=== PATIENT | male | born 1990 | race African-American/Black ===

== ENCOUNTER 2020-06-18 14:30 | Emergency (ER) | payer MEDICARE, MEDICAID ==
[2020-06-18] MEDS ORDERED: Ibuprofen 200 MG TAB ONE (16:36)
== END 2020-06-18 16:40 | disposition home or self-care (01) ==
LOC: CSHERS 14:30
DX: M54.2 Cervicalgia (principal); G89.29 Other chronic pain; I10 Essential (primary) hypertension
CPT/HCPCS: 99281

== ENCOUNTER 2020-11-16 11:41 | Emergency (ER) | payer MEDICARE, MEDICAID ==
[2020-11-17 09:54] LABS: SARS-CoV-2 PCR by NAA Not Detected (NotDetected)
== END 2020-11-16 12:20 | disposition home or self-care (01) ==
LOC: CSHERS 11:41
DX: J06.9 Acute upper respiratory infection, unspecified (principal); Z20.822 Contact with and (suspected) exposure to COVID-19; I10 Essential (primary) hypertension
CPT/HCPCS: U0003; U0005; 99283

== ENCOUNTER 2021-05-22 18:07 | Emergency (ER) | payer MEDICARE, MEDICAID ==
[2021-05-22 19:09] LABS: #Basophils 0.1 10x3/uL (0.0-0.2); #Eosinphils 0.1 10x3/uL (0.0-0.5); #Monocytes 0.5 10x3/uL (0.0-1.1); #Neutrophils 3.2 10x3/uL (1.5-8.4); %Basophils 1.5 % (0.0-2.0); %Eosinophils 1.5 % (0.0-6.0); %Lymphocytes 35.8 % (18.0-47.0); %Monocytes 7.9 % (0.0-10.0); %Neutrophils 53.1 % (40.0-75.0); Hemoglobin 14.9 g/dL (13.5-17.5); Mean Corpuscular HGB CONC 34.1 g/dL (32.0-36.0); Mean Corpuscular Hemoglobin 29.3 pg (27.0-33.0); Mean Platelet Volume 10.9 fl (7.4-10.4); Platelet Count 259 10x3/uL (150-450); RBC Distribution Width 12.1 % (11.5-14.5); Red Blood Cell (RBC) Count 5.08 10x6/uL (4.32-5.72); White Blood Cell (WBC) Count 6.1 10x3/uL (3.5-10.5)
[2021-05-22 19:20] LABS: ALT (SGPT) 29 U/L (8-55); AST (SGOT) 32 U/L (5-34); Albumin 4.6 g/dL (3.5-5.0); Alkaline Phosphatase 80 U/L (40-110); Anion Gap 13 mmol/L (10-20); BUN (Urea Nitrogen) 12 mg/dL (8.9-20.6); Bilirubin, Total 1.9 mg/dL (0.2-1.2); Calc. Creatinine Clearance 0 mL/min (70-130); Calcium 9.8 mg/dL (7.8-10.44); Carbon Dioxide 26 mmol/L (22-29); Chloride 103 mmol/L (98-107); Globulin 3.3 g/dL (2.4-3.5); Glucose 79 mg/dL (70-105); Lipase 30 U/L (8-78); Potassium 3.5 mmol/L (3.5-5.1); Protein, Total 7.9 g/dL (6.0-8.3); Sodium 138 mmol/L (136-145)
[2021-05-22] MEDS ORDERED: Ketorolac Tromethamine 30 MG/ML VIAL ONE (19:44)
== END 2021-05-22 20:01 | disposition home or self-care (01) ==
LOC: CSHERS 18:07
DX: R07.9 Chest pain, unspecified (principal); I10 Essential (primary) hypertension
CPT/HCPCS: 71045; 80053; 83690; 84484; 85025; 93005; 94760; 96374; J1885

== ENCOUNTER 2021-08-05 20:00 | Emergency (ER) | payer MEDICARE, OTHER ==
[2021-08-05] MEDS ORDERED: predniSONE 20 MG TAB ONE (20:54)
== END 2021-08-05 21:00 | disposition home or self-care (01) ==
LOC: CSHERS 20:00
DX: M54.2 Cervicalgia (principal); I10 Essential (primary) hypertension
CPT/HCPCS: 99283; J7512

== ENCOUNTER 2021-08-28 07:36 | Emergency (ER) | payer MEDICARE, OTHER ==
[2021-08-28 09:00] LABS: Bilirubin Neg (Negative); Blood, Urine 250 (Negative); Clarity Cloudy (Clear); Glucose, Urine (Dipstick) Normal (Negative); Ketone, Urine Negative (Negative); Leukocyte 25 (Negative); Nitrite Negative (Negative); Protein, Urine (Dipstick) 500 mg/dl (Neg-Trace); pH, Urine 6.5 (5.0-9.0)
[2021-08-28 09:03] LABS: Bacteria/HPF None Seen HPF (None Seen); RBC/HPF Greater than 50 HPF (0-3); Squamous Epithelial None Seen HPF (0-3); WBC/HPF 0-3 HPF (0-3)
[2021-08-28] MEDS ORDERED: Azithromycin 250 MG TAB ONE (09:31)
[2021-08-28] MEDS ORDERED: cefTRIAXone\\ROCEPHIN 500 MG VIAL ONE (09:31)
[2021-08-28] MEDS ORDERED: Sterile Water 10 ML ONE (09:32)
[2021-08-29 12:36] LABS: Chlam.trachomatis by PCR,Urine Not Detected (NotDetected)
== END 2021-08-28 09:42 | disposition home or self-care (01) ==
LOC: CSHERS 07:36
DX: R31.9 Hematuria, unspecified (principal); Z20.2 Contact with and (suspected) exposure to infections with a predominantly sexual mode of transmission; I10 Essential (primary) hypertension
CPT/HCPCS: 81003; 81015; 87086; 87491; 87591; 96372; 99283; J0696

== ENCOUNTER 2021-09-09 17:28 | Emergency (ER) | payer MEDICARE, OTHER ==
[2021-09-09 19:00] LABS: #Basophils 0.1 10x3/uL (0.0-0.2); #Eosinphils 0.1 10x3/uL (0.0-0.5); #Monocytes 0.4 10x3/uL (0.0-1.1); %Basophils 2.5 % (0.0-2.0); %Eosinophils 2.1 % (0.0-6.0); %Lymphocytes 48.2 % (18.0-47.0); %Monocytes 8.4 % (0.0-10.0); %Neutrophils 38.6 % (40.0-75.0); Mean Corpuscular HGB CONC 34.3 g/dL (32.0-36.0); Mean Corpuscular Hemoglobin 29.9 pg (27.0-33.0); Mean Corpuscular Volume 87.2 fl (81.2-95.1); Mean Platelet Volume 10.4 fl (7.4-10.4); Platelet Count 267 10x3/uL (150-450); RBC Distribution Width 12.6 % (11.5-14.5); Red Blood Cell (RBC) Count 4.68 10x6/uL (4.32-5.72); White Blood Cell (WBC) Count 5.1 10x3/uL (3.5-10.5)
[2021-09-09 19:13] LABS: ALT (SGPT) 46 U/L (8-55); AST (SGOT) 29 U/L (5-34); Albumin 4.4 g/dL (3.5-5.0); Alkaline Phosphatase 69 U/L (40-110); Anion Gap 12 mmol/L (10-20); BUN (Urea Nitrogen) 6 mg/dL (8.9-20.6); Calc. Creatinine Clearance 0 mL/min (70-130); Calcium 9.6 mg/dL (7.8-10.44); Carbon Dioxide 26 mmol/L (22-29); Chloride 103 mmol/L (98-107); Estimated GFR 100; Globulin 2.9 g/dL (2.4-3.5); Glucose 84 mg/dL (70-105); Lipase 28 U/L (8-78); Potassium 4.3 mmol/L (3.5-5.1); Protein, Total 7.3 g/dL (6.0-8.3); Sodium 137 mmol/L (136-145)
[2021-09-09] MEDS ORDERED: Dicyclomine 20 MG/2 ML VIAL ONE (19:48)
== END 2021-09-09 19:56 | disposition home or self-care (01) ==
LOC: CSHERS 17:28
DX: R10.84 Generalized abdominal pain (principal); R19.7 Diarrhea, unspecified; I10 Essential (primary) hypertension
CPT/HCPCS: 36415; 80053; 83690; 85025; 96372; 99284; J0500

== ENCOUNTER 2021-10-07 08:34 | Emergency (ER) | payer MEDICARE, OTHER | END 2021-10-07 08:53 | disposition left against medical advice (07) | LOC: CSHERS 08:34 | DX: Z53.21 Procedure and treatment not carried out due to patient leaving prior to being seen by health care provider (principal) ==

== ENCOUNTER 2021-10-23 21:08 | Emergency (ER) | payer MEDICARE, OTHER ==
[2021-10-23] MEDS ORDERED: Mag-Al Plus 1200 MG/1200 MG/120 MG/30 ML UDCUP ONE (23:33)
[2021-10-23] MEDS ORDERED: Lidocaine Viscous Sol 2% 15 ml UD Cup ONE (23:33)
[2021-10-24 00:06] LABS: #Basophils 0.1 10x3/uL (0.0-0.2); #Eosinphils 0.2 10x3/uL (0.0-0.5); #Monocytes 0.5 10x3/uL (0.0-1.1); #Neutrophils 1.7 10x3/uL (1.5-8.4); %Eosinophils 3.7 % (0.0-6.0); %Lymphocytes 49.7 % (18.0-47.0); %Monocytes 9.3 % (0.0-10.0); %Neutrophils 35.1 % (40.0-75.0); Hemoglobin 14.6 g/dL (13.5-17.5); Mean Corpuscular HGB CONC 34.2 g/dL (32.0-36.0); Mean Corpuscular Hemoglobin 29.6 pg (27.0-33.0); Mean Corpuscular Volume 86.4 fl (81.2-95.1); Mean Platelet Volume 11.3 fl (7.4-10.4); Platelet Count 157 10x3/uL (150-450); RBC Distribution Width 12.4 % (11.5-14.5); Red Blood Cell (RBC) Count 4.94 10x6/uL (4.32-5.72); White Blood Cell (WBC) Count 4.9 10x3/uL (3.5-10.5)
[2021-10-24 00:11] LABS: ALT (SGPT) 26 U/L (8-55); AST (SGOT) 30 U/L (5-34); Albumin 4.4 g/dL (3.5-5.0); Alkaline Phosphatase 69 U/L (40-110); Anion Gap 13 mmol/L (10-20); BUN (Urea Nitrogen) 8 mg/dL (8.9-20.6); Bilirubin, Total 0.9 mg/dL (0.2-1.2); Calc. Creatinine Clearance 0 mL/min (70-130); Calcium 9.9 mg/dL (7.8-10.44); Carbon Dioxide 27 mmol/L (22-29); Chloride 105 mmol/L (98-107); Estimated GFR 98; Globulin 3.1 g/dL (2.4-3.5); Glucose 87 mg/dL (70-105); Lipase 29 U/L (8-78); Potassium 3.9 mmol/L (3.5-5.1); Protein, Total 7.5 g/dL (6.0-8.3); Sodium 141 mmol/L (136-145)
[2021-10-24 00:22] LABS: Bilirubin Neg (Negative); Blood, Urine 10 (Negative); Clarity Clear (Clear); Glucose, Urine (Dipstick) Normal (Negative); Ketone, Urine 5 mg/dL (Negative); Leukocyte Negative (Negative); Nitrite Negative (Negative); Protein, Urine (Dipstick) 15 mg/dl (Neg-Trace)
[2021-10-24 00:31] LABS: Bacteria/HPF None Seen HPF (None Seen); RBC/HPF 0-3 HPF (0-3); Squamous Epithelial None Seen HPF (0-3)
[2021-10-24] MEDS ORDERED: Ketorolac Tromethamine 30 MG/ML VIAL ONE (01:30)
== END 2021-10-24 01:36 | disposition home or self-care (01) ==
LOC: CSHERS 21:08
DX: R10.9 Unspecified abdominal pain (principal); I10 Essential (primary) hypertension
CPT/HCPCS: 80053; 81003; 81015; 83690; 85025; 96374; J1885

== ENCOUNTER 2021-11-09 20:32 | Emergency (ER) | payer MEDICARE, OTHER ==
[2021-11-10 16:38] LABS: Chlam.trachomatis by PCR,Urine Not Detected (NotDetected)
== END 2021-11-09 21:33 | disposition home or self-care (01) ==
LOC: CSHERS 20:32
DX: Z20.2 Contact with and (suspected) exposure to infections with a predominantly sexual mode of transmission (principal); I10 Essential (primary) hypertension
CPT/HCPCS: 87491; 87591; 99283

== ENCOUNTER 2022-04-03 15:08 | Emergency (ER) | payer MEDICARE, OTHER ==
[2022-04-03 17:03] LABS: SARS-CoV-2 NAA Rapid Test Not Detected (NotDetected)
== END 2022-04-03 16:40 | disposition home or self-care (01) ==
LOC: CSHERS 15:08
DX: B34.9 Viral infection, unspecified (principal); Z20.822 Contact with and (suspected) exposure to COVID-19
CPT/HCPCS: 0240U; 87081; 87430; 99283

== ENCOUNTER 2022-09-23 11:18 | Emergency (ER) | payer OTHER, MEDICAID ==
[2022-09-23] MEDS ORDERED: Naproxen 500 MG TAB ONE (12:03)
[2022-09-23] MEDS ORDERED: AMOXicillin 500 MG CAP PO SCH (12:30)
[2022-09-23] MEDS ORDERED: AMOXicillin 250 MG CAP PO SCH (12:30)
== END 2022-09-23 12:33 | disposition home or self-care (01) ==
LOC: CSHERS 11:18
DX: K08.89 Other specified disorders of teeth and supporting structures (principal); I10 Essential (primary) hypertension
CPT/HCPCS: 99282

== ENCOUNTER 2022-11-11 09:16 | Emergency (ER) | payer OTHER, MEDICAID ==
[2022-11-11] MEDS ORDERED: Ibuprofen 200 MG TAB ONE (10:14)
[2022-11-11] MEDS ORDERED: Dexamethasone 10 MG/ML VIAL ONE (10:14)
== END 2022-11-11 11:31 | disposition home or self-care (01) ==
LOC: CSHERS 09:16
DX: B34.9 Viral infection, unspecified (principal); J02.9 Acute pharyngitis, unspecified; J06.9 Acute upper respiratory infection, unspecified; I10 Essential (primary) hypertension
CPT/HCPCS: 71045; 87081; 87430; J1100

== ENCOUNTER 2023-02-04 11:58 | Emergency (ER) | payer MEDICARE, MEDICAID ==
[2023-02-04 13:45] LABS: SARS-CoV-2 NAA Rapid Test Not Detected (NotDetected)
[2023-02-04] MEDS ORDERED: Oseltamivir 75 MG CAP PO SCH (14:15)
== END 2023-02-04 14:22 | disposition home or self-care (01) ==
LOC: CSHERS 11:58
DX: J10.1 Influenza due to other identified influenza virus with other respiratory manifestations (principal); I10 Essential (primary) hypertension; Z20.822 Contact with and (suspected) exposure to COVID-19
CPT/HCPCS: 0240U; 71045; 99284

== ENCOUNTER 2023-02-27 11:40 | Emergency (ER) | payer MEDICARE, MEDICAID ==
[2023-02-27] MEDS ORDERED: Ondansetron PF 4 MG/2 ML Vial ONE (12:50)
[2023-02-27] MEDS ORDERED: Ketorolac Tromethamine 30 MG/ML VIAL ONE (14:07)
[2023-02-27 14:17] LABS: SARS-CoV-2 NAA Rapid Test Not Detected (NotDetected)
== END 2023-02-27 14:59 | disposition home or self-care (01) ==
LOC: CSHERS 11:40
DX: J10.1 Influenza due to other identified influenza virus with other respiratory manifestations (principal); I10 Essential (primary) hypertension
CPT/HCPCS: 96374; 96375; J1885; J2405

== ENCOUNTER 2023-10-01 07:30 | Emergency (ER) | payer OTHER, MEDICAID ==
[2023-10-01 10:15] LABS: #Basophils 0.05 10x3/uL (0.0-0.2); #Monocytes 0.48 10x3/uL (0.0-1.1); #Neutrophils 3.61 10x3/uL (1.5-8.4); %Basophils 1.1 % (0.0-2.0); %Lymphocytes 12.8 % (18.0-47.0); %Monocytes 10.1 % (0.0-10.0); %Neutrophils 75.8 % (40.0-75.0); ALT (SGPT) 30 U/L (8-55); AST (SGOT) 34 U/L (5-34); Albumin 3.5 g/dL (3.5-5.0); Alkaline Phosphatase 70 U/L (40-110); Anion Gap 13 mmol/L (10-20); BUN (Urea Nitrogen) 10 mg/dL (8.9-20.6); Calc. Creatinine Clearance 0 mL/min (70-130); Calcium 9.4 mg/dL (7.8-10.44); Carbon Dioxide 25 mmol/L (22-29); Chloride 103 mmol/L (98-107); Estimated GFR 103; Globulin 3.1 g/dL (2.4-3.5); Glucose 110 mg/dL (70-105); Lipase 18 U/L (8-78); Mean Corpuscular HGB CONC 35.6 g/dL (32.0-36.0); Mean Corpuscular Hemoglobin 30.8 pg (27.0-33.0); Mean Corpuscular Volume 86.5 fL (81.2-95.1); Mean Platelet Volume 10.4 fL (7.4-10.4); Platelet Count 245 10x3/uL (150-450); Protein, Total 6.6 g/dL (6.0-8.3); RBC Distribution Width 12.9 % (11.5-14.5); Sodium 137 mmol/L (136-145); White Blood Cell (WBC) Count 4.8 10x3/uL (3.5-10.5)
[2023-10-01 11:07] LABS: Influenza A by NAA Not Detected (NotDetected); Influenza B by NAA Not Detected (NotDetected); SARS-CoV-2 NAA Rapid Test Not Detected (NotDetected)
[2023-10-01 11:34] LABS: Clarity Clear (Clear); pH, Urine 6.5 (5.0-9.0)
[2023-10-01 11:35] LABS: Glucose, Urine (Dipstick) Normal (Negative); Ketone, Urine 50 mg/dL (Negative); Leukocyte Negative (Negative); Nitrite Negative (Negative); Protein, Urine (Dipstick) 30 mg/dl (Neg-Trace)
[2023-10-01 11:36] LABS: Bilirubin Negative (Negative)
[2023-10-01 11:37] LABS: Bacteria/HPF None Seen HPF (None Seen); Blood, Urine Negative (Negative); RBC/HPF None Seen HPF (0-3); Squamous Epithelial 0-3 HPF (0-3); WBC/HPF None Seen HPF (0-3)
== END 2023-10-01 12:20 | disposition home or self-care (01) ==
LOC: CSHERS 07:30
DX: R10.9 Unspecified abdominal pain (principal); I10 Essential (primary) hypertension
CPT/HCPCS: 0240U; 74177; 80053; 81001; 83690; 85025; 96372; 99284; J1885; Q9967

== ENCOUNTER 2024-03-02 11:11 | Emergency (ER) | payer MEDICARE, OTHER ==
[2024-03-02 12:23] LABS: Bilirubin Neg (Negative); Blood, Urine Negative (Negative); Clarity Clear (Clear); Glucose, Urine (Dipstick) Normal (Negative); Ketone, Urine Negative (Negative); Leukocyte Negative (Negative); Nitrite Negative (Negative); Protein, Urine (Dipstick) Negative (Neg-Trace); Urobilinogen Normal mg/dL (Less than 2)
[2024-03-02 12:27] LABS: Bacteria/HPF Rare-Few HPF (None Seen); CAUTI Indications for Culture Pelvic or flank pain; RBC/HPF 0-3 HPF (0-3); Squamous Epithelial 0-3 HPF (0-3); WBC/HPF 0-3 HPF (0-3)
[2024-03-02 12:29] LABS: Urine Culture Reflex No No
[2024-03-03 07:30] LABS: Chlam.trachomatis by PCR,Urine Not Detected (NotDetected); GC N.gonorrhoeae PCR,UrineVOID Not Detected (NotDetected)
== END 2024-03-02 13:10 | disposition home or self-care (01) ==
LOC: CSHERS 11:11
DX: N50.819 Testicular pain, unspecified (principal); I10 Essential (primary) hypertension; E78.5 Hyperlipidemia, unspecified
CPT/HCPCS: 76870; 81001; 87491; 87591; 93976

== ENCOUNTER 2024-03-04 11:01 | Emergency (ER) | payer MEDICARE, OTHER ==
[2024-03-04] MEDS ORDERED: Ketorolac Tromethamine 30 MG (1 mL) VIAL ONE (11:37)
== END 2024-03-04 13:00 | disposition home or self-care (01) ==
LOC: CSHERS 11:01
DX: N50.819 Testicular pain, unspecified (principal); I10 Essential (primary) hypertension
CPT/HCPCS: 76870; 93976; J1885; 96372

== ENCOUNTER 2024-11-18 12:36 | Emergency (ER) | payer OTHER ==
[2024-11-18 12:58] LABS: #Basophils 0.09 10x3/uL (0.0-0.2); #Eosinophils 0.04 10x3/uL (0.0-0.5); #Monocytes 0.55 10x3/uL (0.0-1.1); #Neutrophils 2.61 10x3/uL (1.5-8.4); %Basophils 1.7 % (0.0-2.0); %Eosinophils 0.8 % (0.0-6.0); %Lymphocytes 36.7 % (18.0-47.0); %Monocytes 10.6 % (0.0-10.0); %Neutrophils 50.0 % (40.0-75.0); Hematocrit 51.7 % (38.8-50.0); Hemoglobin 17.4 g/dL (13.5-17.5); Mean Corpuscular Hemoglobin 29.4 pg (27.0-33.0); Mean Corpuscular Volume 87.3 fL (81.2-95.1); Platelet Count 233 10x3/uL (150-450); Red Blood Cell (RBC) Count 5.92 10x6/uL (4.32-5.72); White Blood Cell (WBC) Count 5.21 10x3/uL (3.5-10.5)
[2024-11-18 13:07] LABS: ALT (SGPT) 56 U/L (Less than 45); AST (SGOT) 38 U/L (11-34); Albumin 3.7 g/dL (3.1-4.5); Alkaline Phosphatase 112 U/L (40-110); Anion Gap 13 mmol/L (10-20); BUN (Urea Nitrogen) 9 mg/dL (8.9-20.6); Bilirubin, Total 1.0 mg/dL (0.3-1.2); Calc. Creatinine Clearance 0 mL/min (70-130); Calcium 8.8 mg/dL (7.8-10.44); Carbon Dioxide 23 mmol/L (22-29); Chloride 108 mmol/L (98-107); Globulin 2.9 g/dL (2.4-3.5); Glucose 91 mg/dL (70-105); Potassium 4.1 mmol/L (3.5-5.1); Sodium 140 mmol/L (136-145)
[2024-11-18 13:11] LABS: Troponin I Less than 0.010 ng/mL (< 0.028)
[2024-11-18] MEDS ORDERED: Mag-Al 1200 mg/1200 mg/30 ML UDCUP ONE (13:36)
[2024-11-18] MEDS ORDERED: Pantoprazole 40 MG DR.TAB ONE (13:36)
[2024-11-18] MEDS ORDERED: Lidocaine Viscous Sol 2% 15 ml UD Cup ONE ×2 (13:37→17:26)
[2024-11-18 16:22] LABS: Troponin I Less than 0.010 ng/mL (< 0.028)
[2024-11-18] MEDS ORDERED: Milk Of Magnesia 30 ML UDCUP ONE (17:26)
== END 2024-11-18 15:33 | disposition home or self-care (01) ==
LOC: CSHERS 12:36
DX: K29.70 Gastritis, unspecified, without bleeding (principal); I10 Essential (primary) hypertension
CPT/HCPCS: 36415; 71045; 80053; 83690; 84484; 85025; 93005

== ENCOUNTER 2024-11-19 16:42 | Emergency (ER) | payer OTHER | END 2024-11-19 17:18 | disposition home or self-care (01) | LOC: CSHERS 16:42 | DX: R59.0 Localized enlarged lymph nodes (principal); I10 Essential (primary) hypertension | CPT/HCPCS: 99283 ==